=== PATIENT | female | born 1975 | race Caucasian/White ===

== ENCOUNTER 2017-09-28 08:41 | Emergency (ER) | payer BC ==
--- NOTE | 2017-09-28 09:12 | EDM.PDOC ---
ED HPI GENERAL MEDICAL PROBLEM - General Chief Complaint: Respiratory Problem Stated Complaint: CHEST DISCOMFORT Time Seen by Provider: 09/28/17 09:07 Source of Information: Reports: Patient History Limitations: Reports: No Limitations - History of Present Illness INITIAL COMMENTS - FREE TEXT/NARRATIVE: 42-year-old female presents to the ED generally not feeling well for the last 3 days. Her chief complaint is chest heaviness mostly central precordial chest. Associate with a productive cough of brownish mucus. She still smokes a pack per day. She denies any hemoptysis. Feels hot and cold but no defined fever. Nasally congested with right ear pain particularly with swallowing. Diffuse sore throat. Poor appetite 3 days. Stools tend to be a little bit on the low side. No nausea or vomiting. Feels generally achy and weak. She admits she's not been eating or drinking very well the last 2-3 days. Onset: Gradual Onset Date: 09/25/17 Duration: Day(s): Location: Reports: Face (Cold symptoms with nasal congestion and right ear pain. Sore throat.), Chest (Central chest pressure discomfort with a productive cough.), Generalized (Generalized myalgia and weakness.) Quality: Reports: Ache Severity: Moderate Improves with: Reports: Rest Worsens with: Reports: Movement Context: Denies: Activity, Exercise, Lifting, Sick Contact, Trauma, Other Associated Symptoms: Reports: Chest Pain, Cough, cough w sputum, Fever/Chills, Loss of Appetite, Malaise, Shortness of Breath, Other. 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 (Took Motrin twice yesterday but did not feel much relief from this.) Generalized Pain Score (Numeric/FACES): 8 - Related Data Allergies Allergy/AdvReac Type Severity Reaction Status Date / Time No Known Allergies Allergy Verified 09/28/17 08:55 Home Meds: Home Meds Calcium Polycarbophil [Fiber Tabs] 1 tab PO BID 09/28/17 [History] Lactobacillus Acidophilus [Acidophilus] 1 tab PO DAILY 09/28/17 [History] Levofloxacin [Levaquin] 500 mg PO DAILY #9 tab 09/28/17 [Rx] Past Medical History Neurological History: Reports: CVA - Past Surgical History GI Surgical History: Reports: Other (See Below) (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 Denies: Hemoptysis (Brownish sputum) Cardiovascular: Reports: Chest Pain (Central chest heaviness 3 days.), Dyspnea on Exertion, Lightheadedness. Denies: Blood Pressure Problem, Claudication, Edema, Orthopnea, Palpitations Endocrine: Reports: Fatigue GI/Abdominal: Reports: Diarrhea, Decreased Appetite : Reports: No Symptoms (Stools on the loose side but still semi-formed.) Musculoskeletal: Reports: Muscle Pain (Generalized myalgia.) Skin: Reports: No Symptoms Neurological: Reports: Dizziness, Difficulty Walking (Feels like her legs are really heavy when she is walking.), Weakness. Denies: Headache, Numbness, Seizure, Syncope, Tingling Psychiatric: Reports: No Symptoms Hematologic/Lymphatic: Reports: No Symptoms Immunologic: Reports: No Symptoms ED EXAM, GENERAL - Physical Exam Exam: See Below Exam Limited By: No Limitations General Appearance: Alert, WD/WN, No Apparent Distress, Other (Does feel mildly warm to palpation. Nurses record Septra 37.2 however. Vital signs are otherwise normal with BP 121/88 with a pulse ox of 98% on room air.) Eye Exam: Bilateral Eye: Normal Inspection Ears: Normal TMs Nose: Clear Rhinorrhea Throat/Mouth: Normal Inspection, Normal Oropharynx, Other (There oropharynx reveals inflammation of the soft palate uvula and particularly the right palatine tonsil without exudate. It is very bright red and inflamed compatible with pharyngitis.) Head: Atraumatic, Normocephalic Neck: Normal Inspection, Supple, Non-Tender, Full Range of Motion, Lymphadenopathy (L), Lymphadenopathy (R) (Mild mild) Respiratory/Chest: No Respiratory Distress, Lungs Clear, Normal Breath Sounds, No Accessory Muscle Use, Chest Non-Tender, Rhonchi (A few rhonchi scattered upper anterior chest that clear with coughing.) Cardiovascular: Normal Peripheral Pulses, Regular Rate, Rhythm, No Edema, No Gallop, No Murmur, No Rub Peripheral Pulses: 3+: Posterior Tibial (L), Posterior Tibial (R), Dorsalis Pedis (L), Dorsalis Pedis (R) GI/Abdominal: Normal Bowel Sounds, Soft, Non-Tender, No Organomegaly, No Abnormal Bruit, No Mass, Pelvis Stable Extremities: Normal Inspection, Normal Range of Motion, Non-Tender, No Pedal Edema Neurological: Alert, Oriented, CN II-XII Intact, Normal Cognition Psychiatric: Normal Affect, Normal Mood Skin Exam: Warm, Dry, Intact, Normal Color, No Rash EKG INTERPRETATION EKG Date: 09/28/17 Time: 08:55 Rhythm: NSR Rate (Beats/Min): 89 [place]: Normal P-Wave: Enlarged (consider Lt atrial hypertrophy.) QRS: Other (Decreased voltage in limb leads. There are Q waves in V1 and V2. Consider old anteroseptal myocardial infarction.) ST-T: Normal QT: Normal EKG Interpretation Comments: Abnormal ECG Course - Vital Signs Last Recorded V/S: Last Vital Signs Temp 37.2 C 09/28/17 08:50 Pulse 76 09/28/17 13:26 Resp 16 09/28/17 08:50 BP 136/74 09/28/17 13:26 Pulse Ox 98 09/28/17 13:26 - Orders/Labs/Meds Orders: Active Orders 24 hr Category Date Time Status EKG Documentation Completion [RC] STAT Care 09/28/17 09:24 Active CULTURE BLOOD [] Stat Lab 09/28/17 11:45 Received CULTURE BLOOD [] Stat Lab 09/28/17 11:55 Received CULTURE STREP A CONFIRMATION [] Stat Lab 09/28/17 09:44 Results INFLUENZA A+B AG SCREEN [] Stat Lab 09/28/17 09:44 Ordered STREP SCRN A RAPID W CULT CONF [] Stat Lab 09/28/17 09:44 Ordered Blood Culture x2 Reflex Set [OM.PC] Stat Oth 09/28/17 11:30 Ordered Labs: Laboratory Tests 09/28/17 09/28/17 09/28/17 Range/Units 09:00 09:00 11:24 WBC 23.62 H (3.98-10.04) K/mm3 RBC 4.84 (3.98-5.22) M/mm3 Hgb 15.0 (11.2-15.7) gm/L Hct 44.6 (34.1-44.9) % MCV 92.1 (79.4-94.8) fl MCH 31.0 (25.6-32.2) pg MCHC 33.6 (32.2-35.5) g/dl RDW Std Deviation 53.6 H (36.4-46.3) fL Plt Count 271 (182-369) K/mm3 MPV 11.8 (9.4-12.3) fl Neutrophils % (Manual) 52 (40-60) % Band Neutrophils % 1 (0-10) % Lymphocytes % (Manual) 38 (20-40) % Atypical Lymphs % 0 % Monocytes % (Manual) 9 (2-10) % Eosinophils % (Manual) 0 L (0.7-5.8) % Basophils % (Manual) 0 L (0.1-1.2) Differential Comment See note Platelet Estimate Adequate RBC Morph Comment Normal Sodium 139 (136-145) mEq/L Potassium 3.9 (3.5-5.1) mEq/L Chloride 100 (98-107) mEq/L Carbon Dioxide 25 (21-32) mEq/L Anion Gap 17.9 H (5-15) BUN 10 (7-18) mg/dL Creatinine 0.6 (0.55-1.02) mg/dL Est Cr Clr Drug Dosing 115.51 mL/min Estimated GFR (MDRD) > 60 (>60) mL/min BUN/Creatinine Ratio 16.7 (14-18) Glucose 90 (74-106) mg/dL Lactic Acid (0.4-2.0) mmol/L Calcium 9.4 (8.5-10.1) mg/dL Magnesium 1.8 (1.8-2.4) mg/dl Total Bilirubin 0.7 (0.2-1.0) mg/dL AST 21 (15-37) U/L ALT 27 (14-59) U/L Alkaline Phosphatase 111 (46-116) U/L CK-MB (CK-2) < 0.5 (0-3.6) ng/ml Troponin I < 0.017 (0.00-0.056) ng/mL C-Reactive Protein 8.8 H* (<1.0) mg/dL Total Protein 8.0 (6.4-8.2) g/dl Albumin 4.1 (3.4-5.0) g/dl Globulin 3.9 gm/dL Albumin/Globulin Ratio 1.1 (1-2) Urine Color Yellow (Yellow) Urine Appearance Clear (Clear) Urine pH 6.5 (5.0-8.0) Ur Specific [place] 1.025 (1.005-1.030) Urine Protein Trace H (Negative) Urine Glucose (UA) Negative (Negative) Urine Ketones Trace H (Negative) Urine Occult Blood Negative (Negative) Urine Nitrite Negative (Negative) Urine Bilirubin Negative (Negative) Urine Urobilinogen 1.0 (0.2-1.0) Ur Leukocyte Esterase Negative (Negative) 09/28/17 Range/Units 11:45 WBC (3.98-10.04) K/mm3 RBC (3.98-5.22) M/mm3 Hgb (11.2-15.7) gm/L Hct (34.1-44.9) % MCV (79.4-94.8) fl MCH (25.6-32.2) pg MCHC (32.2-35.5) g/dl RDW Std Deviation (36.4-46.3) fL Plt Count (182-369) K/mm3 MPV (9.4-12.3) fl Neutrophils % (Manual) (40-60) % Band Neutrophils % (0-10) % Lymphocytes % (Manual) (20-40) % Atypical Lymphs % % Monocytes % (Manual) (2-10) % Eosinophils % (Manual) (0.7-5.8) % Basophils % (Manual) (0.1-1.2) Differential Comment Platelet Estimate RBC Morph Comment Sodium (136-145) mEq/L Potassium (3.5-5.1) mEq/L Chloride (98-107) mEq/L Carbon Dioxide (21-32) mEq/L Anion Gap (5-15) BUN (7-18) mg/dL Creatinine (0.55-1.02) mg/dL Est Cr Clr Drug Dosing mL/min Estimated GFR (MDRD) (>60) mL/min BUN/Creatinine Ratio (14-18) Glucose (74-106) mg/dL Lactic Acid 1.2 (0.4-2.0) mmol/L Calcium (8.5-10.1) mg/dL Magnesium (1.8-2.4) mg/dl Total Bilirubin (0.2-1.0) mg/dL AST (15-37) U/L ALT (14-59) U/L Alkaline Phosphatase (46-116) U/L CK-MB (CK-2) (0-3.6) ng/ml Troponin I (0.00-0.056) ng/mL C-Reactive Protein (<1.0) mg/dL Total Protein (6.4-8.2) g/dl Albumin (3.4-5.0) g/dl Globulin gm/dL Albumin/Globulin Ratio (1-2) Urine Color (Yellow) Urine Appearance (Clear) Urine pH (5.0-8.0) Ur Specific [place] (1.005-1.030) Urine Protein (Negative) Urine Glucose (UA) (Negative) Urine Ketones (Negative) Urine Occult Blood (Negative) Urine Nitrite (Negative) Urine Bilirubin (Negative) Urine Urobilinogen (0.2-1.0) Ur Leukocyte Esterase (Negative) Meds: Medications Discontinued Medications Generic Name Dose Route Start Last Admin Trade Name Amelia PRN Reason Stop Dose Admin Acetaminophen 975 mg 09/28/17 09:23 09/28/17 09:36 Tylenol PO 09/28/17 09:24 975 mg NOW ONE Administration Dextrose/Sodium Chloride 1,000 mls @ 500 mls/hr 09/28/17 09:30 09/28/17 09:40 Dextrose 5%-Normal Saline IV 500 mls/hr ASDIRECTED NAI Administration Ceftriaxone Sodium 2 gm/ 100 mls @ 100 mls/hr 09/28/17 11:39 09/28/17 11:47 Sodium Chloride IV 09/28/17 12:38 100 mls/hr ONETIME ONE Administration Ketorolac Tromethamine 30 mg 09/28/17 09:30 09/28/17 09:37 Toradol IVPUSH 30 mg ONETIME NAI Administration - Radiology Interpretation Free Text/Narrative:: 42-year-old female presents the ED with generally not feeling well for the last 3 days. Complains of sore throat sinus congestion right ear pain heaviness since her central chest with some concerns that may be heart related. Has have a productive cough. Unclear says defined fever although she feels slightly warm to palpation on exam. Lungs are clear to auscultation percussion. Right ear exam was normal nasally congested. Oropharynx does show diffuse erythematous inflammation. Plan IV D5 normal saline at 500 mils per hour. Given Toradol 30 mg IV for pain relief. Tylenol 975 mg by mouth for fever relief. Labs to be collected including influenza screen. One view chest x-ray to be done. ECG is done and is within normal limits showing no signs of ischemia. - Re-Assessments/Exams Free Text/Narrative Re-Assessment/Exam: 09/28/17 11:00: Chest x-ray revealed mild hyperinflated lung martin but no signs of pneumonia. Cardiac silhouette was within normal limits. 09/28/17 11:29 labs are back.White count is markedly elevated at 23,062... Differential is fairly normal however with 52% neutrophils and 1% band cells. Hemoglobin is 15.0 with hematocrit of 44.6. Platelet count is 271,000. Sodium was 139 with potassium of 3.9. Chloride 100 with a bicarbonate of 25. Anion gap is elevated at 17.9. BUN is 10 with a creatinine of 0.6. GFR is greater than 60. Glucose is 90. Calcium is 9.4. Magnesium 1.8. Liver function normal cardiac markers normal with troponin less than 0.017. C-reactive protein is 8.8. The lab strongly suggest an infective process is present. Urinalysis is not yet available. Influenza screen is negative as well as the rapid strep screen. Plan patient has voided it's the analysis is just not back yet. I will give her Rocephin 2 g IV after blood cultures 2 have been collected. The elevated white count may well be due to previous splenectomy. Patient alludes to the fact that she always has an elevated white count. However this would not account for her elevated CRP at 8.8. 09/28/17 13:15: Patient is feeling better. She'll be discharged home on Levaquin 500 mg once daily for the next 9 days. Urinalysis did come back normal. Patient will be followed in the clinic early next week to see how she is doing. Departure - Departure Time of Disposition: 13:11 Disposition: Home, Self-Care 01 Condition: Fair Clinical Impression: Sinusitis, Bronchitis Prescriptions: Levofloxacin [Levaquin] 500 mg PO DAILY #9 tab Instructions: Sinusitis, Adult, Acute Bronchitis, Adult Referrals: PCP,None [Ordering Only Provider] - Forms: ED Department Discharge Additional Instructions: Evaluation the emergency room today in regards to persistent sense of illness and productive cough and fever for the last 2-3 days. Investigations reveal an elevated white count which is partially due to having had splenectomy in the past. However markers for infection i.e. CRP of 8.8 strongly suggest an underlying bacterial infective process. Also throat shows evidence of infection particular in the right palatine tonsil area which with referred pain up into her right ear. Influenza screen in the rapid strep screen came back negative. Chest x-ray proved to be negative for pneumonia. Urinalysis also came back clear. Definitely have a degree of bronchitis with chest congestion and sputum production. I suspect there is sinus infection with postnasal drip contributing to cough as well. Initial dose of anabolic was administered in the ED I Rocephin 2 g intravenously. Suggest continue treatment with antibiotic Levaquin 500 mg once daily for another 9 days with the next dose due tomorrow morning. Suggest follow-up with your primary care practitioner in 4-5 days time after the to see how you're getting along. - My Orders Last 24 Hours: My Active Orders 09/28/17 09:24 EKG Documentation Completion [RC] STAT 09/28/17 09:44 CULTURE STREP A CONFIRMATION [RM] Stat INFLUENZA A+B AG SCREEN [RM] Stat STREP SCRN A RAPID W CULT CONF [RM] Stat 09/28/17 11:30 Blood Culture x2 Reflex Set [OM.PC] Stat 09/28/17 11:45 CULTURE BLOOD [BC] Stat 09/28/17 11:55 CULTURE BLOOD [BC] Stat - Assessment/Plan Last 24 Hours: My Active Orders 09/28/17 09:24 EKG Documentation Completion [RC] STAT 09/28/17 09:44 CULTURE STREP A CONFIRMATION [RM] Stat INFLUENZA A+B AG SCREEN [RM] Stat STREP SCRN A RAPID W CULT CONF [RM] Stat 09/28/17 11:30 Blood Culture x2 Reflex Set [OM.PC] Stat 09/28/17 11:45 CULTURE BLOOD [BC] Stat 09/28/17 11:55 CULTURE BLOOD [BC] Stat
[2017-09-28] MEDS ORDERED: Acetaminophen 325 MG Tab PO ONE (09:23)
[2017-09-28] MEDS ORDERED: Ketorolac 30 MG/ML SDV IVPUSH SCH (09:30)
[2017-09-28] MEDS ORDERED: Dextrose 5%-0.9% NaCl 1,000 ML IV SCH (09:30)
--- NOTE | 2017-09-28 10:00 | CR ---
Chest: Frontal view of the chest was obtained. Comparison: No prior chest x-ray. Heart size and mediastinum are normal. Lungs are clear. Bony structures are grossly intact. Surgical clip appears to be present within the upper left abdomen. Impression: 1. Nothing acute is seen on frontal chest x-ray. Diagnostic code #2
[2017-09-28] MEDS ORDERED: cefTRIAXone 2 GM in Sodium Chloride 0.9% 100 ML IV ONE (11:39)
== END 2017-09-28 13:28 | disposition home or self-care (01) ==
LOC: JD.ED 08:41
DX: J40 Bronchitis, not specified as acute or chronic (principal); J32.9 Chronic sinusitis, unspecified; R07.2 Precordial pain; R19.7 Diarrhea, unspecified; Z79.899 Other long term (current) drug therapy; Z86.73 Personal history of transient ischemic attack (TIA), and cerebral infarction without residual deficits
CPT/HCPCS: 36415; 71045; 80053; 81003; 82553; 83605; 83735; 84484; 85025; 86140; 87040; 87081; 87430; 87804; 93005; 96361; 96365; 96375; 99284; A9270; J0696; J1885; J7030; J7042; 93010

== ENCOUNTER 2018-02-22 17:16 | Emergency (ER) | payer BC ==
[2018-02-22] MEDS ORDERED: Ondansetron 4 MG/2 ML SDV IVPUSH ONE ×2 (17:56→19:55)
[2018-02-22] MEDS ORDERED: Sodium Chloride 0.9% 10 ML Syringe FLUSH PRN (17:56)
[2018-02-22] MEDS ORDERED: HYDROmorphone 0.5 MG/0.5 ML SYRINGE IVPUSH ONE ×2 (17:56→19:32)
--- NOTE | 2018-02-22 18:12 | EDM.PDOC ---
ED HPI GENERAL MEDICAL PROBLEM - General Chief Complaint: Abdominal Pain Stated Complaint: PAIN, VOMITTING Time Seen by Provider: 02/22/18 17:51 Source of Information: Reports: Patient History Limitations: Reports: No Limitations - History of Present Illness INITIAL COMMENTS - FREE TEXT/NARRATIVE: 42-year-old female presents for evaluation and treatment of right upper quadrant abdominal pain and right-sided chest pain. Patient states she had laparoscopic cholecystectomy with Dr. Kenney at [facility] in [place] this afternoon. She reports no complications. patient was discharged home. Since the surgery she has had right upper quadrant pain and right-sided chest pain. Describes it as a sharp pain. The chest pain is pleuritic in nature. She also reports nausea and vomiting. She was prescribed tramadol but does not feel this is helping with her pain. She was also given nausea medications but also feels this is not helping. Onset: Today Location: Reports: Chest (right sided chest pain), Abdomen (RUQ pain) Chest Pain Score (Numeric/FACES): 10 - Related Data Allergies Allergy/AdvReac Type Severity Reaction Status Date / Time acetaminophen [From [place]] AdvReac Nausea and Verified 02/22/18 17:33 Vomiting hydrocodone [From [place]] AdvReac Nausea and Verified 02/22/18 17:33 Vomiting Home Meds: Home Meds Calcium Polycarbophil [Fiber Tabs] 1 tab PO BID 09/28/17 [History] Lactobacillus Acidophilus [Acidophilus] 1 tab PO DAILY 09/28/17 [History] levoFLOXacin [Levaquin] 500 mg PO DAILY #9 tab 09/28/17 [Rx] Rivaroxaban [Xarelto] 15 mg PO BID #41 tablet 02/22/18 [Rx] Past Medical History HEENT History: Reports: Impaired Vision Cardiovascular History: Reports: Blood Clots/VTE/DVT Other Cardiovascular History: blood clot, unsure where, unsure if she took blood thinners, does not take blood thinner at this time. 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 This happened approximately 20 years ago) Social & Family History - Family History Family Medical History: Noncontributory - Caffeine Use Caffeine Use: Reports: Coffee - Living Situation & Occupation Living situation: Reports: Occupation: Unemployed ED ROS GENERAL - Review of Systems Review Of Systems: See Below Respiratory: Reports: Shortness of Breath, Pleuritic Chest Pain Cardiovascular: Reports: Chest Pain (right) GI/Abdominal: Reports: Abdominal Pain (RUQ), Nausea, Vomiting ED EXAM, GI/ABD - Physical Exam Exam: See Below Exam Limited By: No Limitations General Appearance: Alert, WD/WN, No Apparent Distress Throat/Mouth: Normal Inspection, Normal Voice, No Airway Compromise Respiratory/Chest: No Respiratory Distress, Lungs Clear, Normal Breath Sounds Cardiovascular: Normal Peripheral Pulses, Regular Rate, Rhythm, No Murmur GI/Abdominal Exam: Normal Bowel Sounds, Soft, Tender (Right upper quadrant), Other (Several wounds the abdomen from laparoscopic cholecystectomy earlier today.) Neurological: Alert, Oriented, Normal Cognition Psychiatric: Normal Affect, Normal Mood Skin Exam: Warm, Dry, Normal Color EKG INTERPRETATION EKG Date: 02/22/18 Time: 17:42 Rhythm: Other (sinus arrhythmia) Rate (Beats/Min): 58 [place]: Normal P-Wave: Present QRS: Normal ST-T: Normal QT: Normal EKG Interpretation Comments: Sinus arrhythmia at [address] segment changes. Reviewed by myself and Dr. Perez. Course - Vital Signs Last Recorded V/S: Last Vital Signs Temp 97.0 F 02/22/18 17:34 Pulse 63 02/22/18 17:34 Resp 18 02/22/18 17:34 BP 121/71 02/22/18 17:34 Pulse Ox 96 02/22/18 17:34 - Orders/Labs/Meds Orders: Active Orders 24 hr Category Date Time Status Peripheral IV Care [RC] . DIRECTED Care 02/22/18 17:56 Active Abdomen 1V Flat [CR] Stat Exams 02/22/18 18:01 Taken Chest 1V Frontal [CR] Stat Exams 02/22/18 18:01 Taken Chest PE [Ang Chest] [CT] Stat Exams 02/22/18 19:07 Taken Sodium Chloride 0.9% [Normal Saline] 100 ml Med 02/22/18 19:30 Active IV ASDIRECTED Sodium Chloride 0.9% [Saline Flush] Med 02/22/18 17:56 Active 10 ml FLUSH ASDIRECTED PRN Peripheral IV Insertion Adult [OM.PC] Routine Oth 02/22/18 17:56 Ordered Medication Orders Sodium Chloride (Normal Saline) 100 mls @ 60 mls/hr IV ASDIRECTED NAI Last Admin: 02/22/18 19:59 Dose: 60 mls/hr Sodium Chloride (Saline Flush) 10 ml FLUSH ASDIRECTED PRN PRN Reason: Keep Vein Open Labs: Laboratory Tests 02/22/18 02/22/18 02/22/18 Range/Units 18:32 18:32 18:32 WBC 14.59 H (3.98-10.04) K/mm3 RBC 4.45 (3.98-5.22) M/mm3 Hgb 13.9 (11.2-15.7) gm/L Hct 41.6 (34.1-44.9) % MCV 93.5 (79.4-94.8) fl MCH 31.2 (25.6-32.2) pg MCHC 33.4 (32.2-35.5) g/dl RDW Std Deviation 52.4 H (36.4-46.3) fL Plt Count 271 (182-369) K/mm3 MPV 11.5 (9.4-12.3) fl Neut % (Auto) 85.9 H (34.0-71.1) % Lymph % (Auto) 11.3 L (19.3-51.7) % [place]ane % (Auto) 2.4 L (4.7-12.5) % Eos % (Auto) 0 L (0.7-5.8) Baso % (Auto) 0.2 (0.1-1.2) % Neut # (Auto) 12.53 H (1.56-6.13) K/mm3 Lymph # (Auto) 1.65 (1.18-3.74) K/mm3 Dane # (Auto) 0.35 (0.24-0.36) K/mm3 Eos # (Auto) 0.00 L (0.04-0.36) K/mm3 Baso # (Auto) 0.03 (0.01-0.08) K/mm3 Manual Slide Review Normal smear PT (9.5-12.1) SECONDS INR APTT (24-31) SECONDS D-Dimer, Quantitative 0.75 H (0.19-0.50) mg/L Sodium 140 (136-145) mEq/L Potassium 4.1 (3.5-5.1) mEq/L Chloride 102 (98-107) mEq/L Carbon Dioxide 25 (21-32) mEq/L Anion Gap 17.1 H (5-15) BUN 13 (7-18) mg/dL Creatinine 0.6 (0.55-1.02) mg/dL Est Cr Clr Drug Dosing 115.51 mL/min Estimated GFR (MDRD) > 60 (>60) mL/min BUN/Creatinine Ratio 21.7 H (14-18) Glucose 135 H (74-106) mg/dL Calcium 9.2 (8.5-10.1) mg/dL Total Bilirubin 0.7 (0.2-1.0) mg/dL AST 21 (15-37) U/L ALT 27 (14-59) U/L Alkaline Phosphatase 97 (46-116) U/L NT-Pro-B Natriuret Pep (0-125) pg/mL Total Protein 7.3 (6.4-8.2) g/dl Albumin 3.7 (3.4-5.0) g/dl Globulin 3.6 gm/dL Albumin/Globulin Ratio 1.0 (1-2) 02/22/18 02/22/18 Range/Units 18:32 18:32 WBC (3.98-10.04) K/mm3 RBC (3.98-5.22) M/mm3 Hgb (11.2-15.7) gm/L Hct (34.1-44.9) % MCV (79.4-94.8) fl MCH (25.6-32.2) pg MCHC (32.2-35.5) g/dl RDW Std Deviation (36.4-46.3) fL Plt Count (182-369) K/mm3 MPV (9.4-12.3) fl Neut % (Auto) (34.0-71.1) % Lymph % (Auto) (19.3-51.7) % Dane % (Auto) (4.7-12.5) % Eos % (Auto) (0.7-5.8) Baso % (Auto) (0.1-1.2) % Neut # (Auto) (1.56-6.13) K/mm3 Lymph # (Auto) (1.18-3.74) K/mm3 Dane # (Auto) (0.24-0.36) K/mm3 Eos # (Auto) (0.04-0.36) K/mm3 Baso # (Auto) (0.01-0.08) K/mm3 Manual Slide Review PT 9.8 (9.5-12.1) SECONDS INR < 0.93 APTT 26 (24-31) SECONDS D-Dimer, Quantitative (0.19-0.50) mg/L Sodium (136-145) mEq/L Potassium (3.5-5.1) mEq/L Chloride (98-107) mEq/L Carbon Dioxide (21-32) mEq/L Anion Gap (5-15) BUN (7-18) mg/dL Creatinine (0.55-1.02) mg/dL Est Cr Clr Drug Dosing mL/min Estimated GFR (MDRD) (>60) mL/min BUN/Creatinine Ratio (14-18) Glucose (74-106) mg/dL Calcium (8.5-10.1) mg/dL Total Bilirubin (0.2-1.0) mg/dL AST (15-37) U/L ALT (14-59) U/L Alkaline Phosphatase (46-116) U/L NT-Pro-B Natriuret Pep 110 (0-125) pg/mL Total Protein (6.4-8.2) g/dl Albumin (3.4-5.0) g/dl Globulin gm/dL Albumin/Globulin Ratio (1-2) Meds: Medications Generic Name Dose Route Start Last Admin Trade Name Freq PRN Reason Stop Dose Admin Sodium Chloride 100 mls @ 60 mls/hr 02/22/18 19:30 02/22/18 19:59 Normal Saline IV 60 mls/hr ASDIRECTED NAI Administration Sodium Chloride 10 ml 02/22/18 17:56 Saline Flush FLUSH ASDIRECTED PRN Keep Vein Open Discontinued Medications Generic Name Dose Route Start Last Admin Trade Name Freq PRN Reason Stop Dose Admin Hydromorphone HCl 0.5 mg 02/22/18 17:56 02/22/18 18:10 Dilaudid IVPUSH 02/22/18 17:57 0.5 mg ONETIME ONE Administration Hydromorphone HCl 0.5 mg 02/22/18 19:32 02/22/18 19:42 Dilaudid IVPUSH 02/22/18 19:33 0.5 mg ONETIME ONE Administration Iopamidol 100 ml 02/22/18 19:24 02/22/18 19:58 [place]-370 (76%) IVPUSH 02/22/18 19:25 100 ml ONETIME ONE Administration Ondansetron HCl 4 mg 02/22/18 17:56 02/22/18 18:10 Zofran IVPUSH 02/22/18 17:57 4 mg ONETIME ONE Administration Ondansetron HCl 4 mg 02/22/18 19:55 02/22/18 20:01 Zofran IVPUSH 02/22/18 19:56 4 mg ONETIME ONE Administration Rivaroxaban 15 mg 02/22/18 22:05 02/22/18 22:29 Xarelto PO 02/22/18 22:06 15 mg ONETIME ONE Administration Sodium Chloride 10 ml 02/22/18 19:24 02/22/18 19:58 Saline Flush FLUSH 02/22/18 19:25 10 ml ONETIME ONE Administration - Radiology Interpretation Free Text/Narrative:: chest x-ray shows air below the right diaphragm presumably from earlier surgery today and insufflation. X-ray of the abdomen shows normal gas pattern. Clips from laparoscopic cholecystectomy. CT of the chest with IV contrast impression per vrad: bilateral pulmonary emboli. Atelectasis noted within both lung bases. Filling defects are present within the pulmonary artery to the right middle lobe, right lower lobe, right upper lobe and left lobe. - Re-Assessments/Exams Free Text/Narrative Re-Assessment/Exam: 02/22/18 19:35 Reviewed the labs with the patient. Her d-dimer is slightly elevated. Given her right-sided chest pain I cannot rule out a PE and will have to pursue a CT pulmonary angiogram. She reports good pain relief with the Dilaudid but states it is now returning. Reviewed the remainder of her imaging, EKG and labs with her. 02/22/18 22:[address] with the patient. I'm recommending admission either here at our hospital or transfer back to [place] where she had surgery today. Patient is refusing admission. She would like to go home. I will have her sign out AMA. Recommend she start some anticoagulation. she agrees to start some Xarelto. Dose given here in the ED and I will provide her with a coupon for 30 day supply. She is to follow up with family medicine tomorrow for recheck of her symptoms. She does have an appointment with hematology within the near future for further evaluation of chronic leukocytosis. Warned of risk of increased bleeding. Departure - Departure Time of Disposition: 22:07 Disposition: Against Medical Advice 07 Condition: Serious Clinical Impression: Pulmonary emboli - Discharge Information *PRESCRIPTION DRUG MONITORING PROGRAM REVIEWED*: Yes *COPY OF PRESCRIPTION DRUG MONITORING REPORT IN PATIENT NICKY: No Prescriptions: Rivaroxaban [Xarelto] 15 mg PO BID #41 tablet Instructions: Pulmonary Embolism Referrals: Ryanne Holguin PA-C [Primary Care Provider] - PCP,Cathy [Ordering Only Provider] - Frank Kenney MD [Ordering Only Provider] - Forms: ED Department Discharge Additional Instructions: You were given medication in the ER that can affect your ability to drive and operate machinery. Do not drive or operate machinery within 10 hours of taking prescription narcotic pain medication. you were started on the blood thinning medication xarelto tonight. This is a blood thinning medication. A Coupon has been provided for you to have 30 days free. supervisor plastic sheets your prescription up at the pharmacy tomorrow morning take this twice a day for 21 days. Further direction on dosing to come from your c programmer or your primary care provider. This medication can cause you to bleed. This is a risk of the medication. Follow-up with your primary care provider in the clinic tomorrow. Recommend Delilah Avendano or Barbie Perez. Call [phone] to schedule with one of these providers. Please let them know you are a follow-up from the ER need to be seen Monday. Rx for Percocet 5-325 #20 given from [facility]. Percocet is habit-forming, take as little as needed to control your pain. Do not drive or operate machinery within 10 hours of taking perception narcotic pain medications. Please return to the ER if your symptoms change or worsen. - My Orders Last 24 Hours: My Active Orders 02/22/18 17:56 Peripheral IV Care [RC] . DIRECTED Sodium Chloride 0.9% [Saline Flush] 10 ml FLUSH ASDIRECTED PRN Peripheral IV Insertion Adult [OM.PC] Routine 02/22/18 18:01 Abdomen 1V Flat [CR] Stat Chest 1V Frontal [CR] Stat 02/22/18 19:07 Chest PE [Ang Chest] [CT] Stat 02/22/18 19:30 Sodium Chloride 0.9% [Normal Saline] 100 ml IV ASDIRECTED - Assessment/Plan Last 24 Hours: My Active Orders 02/22/18 17:56 Peripheral IV Care [RC] . DIRECTED Sodium Chloride 0.9% [Saline Flush] 10 ml FLUSH ASDIRECTED PRN Peripheral IV Insertion Adult [OM.PC] Routine 02/22/18 18:01 Abdomen 1V Flat [CR] Stat Chest 1V Frontal [CR] Stat 02/22/18 19:07 Chest PE [Ang Chest] [CT] Stat 02/22/18 19:30 Sodium Chloride 0.9% [Normal Saline] 100 ml IV ASDIRECTED
[2018-02-22] MEDS ORDERED: Sodium Chloride 0.9% 10 ML Syringe FLUSH ONE (19:24)
[2018-02-22] MEDS ORDERED: Iopamidol 755 Mg/ML 100 ML Bottle IVPUSH ONE (19:24)
[2018-02-22] MEDS ORDERED: Sodium Chloride 0.9% 100 ML IV SCH (19:30)
[2018-02-22] MEDS ORDERED: HYDROmorphone 0.5 MG/0.5 ML SYRINGE ONE (19:41)
[2018-02-22] MEDS ORDERED: Ondansetron 4 MG/2 ML SDV ONE (20:00)
[2018-02-22] MEDS ORDERED: Rivaroxaban 10 MG Tab PO ONE (22:05)
[2018-02-22] MEDS ORDERED: Rivaroxaban 10 MG Tab ONE (22:27)
--- NOTE | 2018-02-23 11:46 | CT ---
CT chest Technique: Multiple axial sections through the chest were obtained. Intravenous contrast was utilized. Study has been performed as a pulmonary angiogram protocol. Findings: Small amount of free air is seen within the abdomen. Air is noted within the anterior abdominal wall. Pulmonary arteries are moderately well-opacified. No filling defects are seen to indicate pulmonary embolism. No axillary adenopathy is seen. Lungs show no acute parenchymal densities. No pleural effusions are seen. Mediastinum and hilar regions show no adenopathy or mass. Minimal coronary artery calcification is seen. No pericardial fluid is seen. Bone window settings were reviewed which appear within normal limits for the patient's age. Impression: 1. Small amount of free air within the upper abdomen. Air also noted within the anterior abdominal wall. 2. No findings of pulmonary embolism are seen. 3. Minimal coronary artery calcification is noted. 4. No additional abnormality is appreciated on CT study of the chest. Diagnostic code #2
--- NOTE | 2018-02-26 07:30 | CR ---
Abdomen: Supine view of the abdomen was obtained. Comparison: No prior abdominal x-ray. Surgical clips are seen from prior cholecystectomy. Other surgical clips are seen within the left upper abdomen. Several radiopacities are noted within the left upper abdomen which are likely incidental. Calcifications are seen within the pelvis most likely due to phleboliths. Bowel gas pattern appears normal. Bony structures are within normal limits. Impression: 1. Incidental findings. Nothing acute is appreciated. Diagnostic code #2
--- NOTE | 2018-02-26 08:37 | CR ---
Chest: Frontal view of the chest is obtained. Comparison: Prior chest x-ray of 02/16/18. Small amount of free air is seen beneath the hemidiaphragm on the right side. Heart size and mediastinum are normal. Lungs are clear without acute parenchymal change. Bony structures are grossly intact. Impression: 1. Small amount of free air beneath the right hemidiaphragm. 2. Nothing acute is otherwise seen on frontal chest x-ray. Diagnostic code #2
== END 2018-02-22 22:25 | disposition left against medical advice (07) ==
LOC: JD.ED 17:16
DX: I26.99 Other pulmonary embolism without acute cor pulmonale (principal); Z88.5 Allergy status to narcotic agent; Z79.899 Other long term (current) drug therapy
CPT/HCPCS: 36415; 71045; 71275; 74018; 80053; 83880; 85025; 85379; 85610; 85730; 96372; 96374; 96375; 99285; A9270; J1170; J2405; J7030; J7050; Q9967; 93010; 99284

== ENCOUNTER 2021-10-11 06:32 | Day surgery (SDC) | payer BC ==
[2021-10-11] MEDS ORDERED: Sodium Chloride 0.9% 10 ML Syringe FLUSH SCH (07:00)
[2021-10-11] MEDS ORDERED: Lactated Ringers 1,000 ML IV SCH (07:00)
[2021-10-11] MEDS ORDERED: Lidocaine 1%/Sod Bicarbonate in NS 8.4% 1 ML Syringe IDERM SCH (07:00)
[2021-10-11] MEDS ORDERED: Albuterol 0.083% 2.5 MG/3 ML Neb Soln NEB SCH (07:25)
[2021-10-11] MEDS ORDERED: Propofol 200 MG/20 ML SDV ONE ×2 (07:32→08:26)
[2021-10-11] MEDS ORDERED: fentaNYL 100 MCG/2 ML SDV ONE (07:33)
[2021-10-11] MEDS ORDERED: Midazolam 1 MG/ML 2 ML SDV ONE (07:33)
== END 2021-10-11 09:24 | disposition home or self-care (01) ==
LOC: JD.SDS 06:32
PROVIDERS: ATTEND Surgery
DX: D12.3 Benign neoplasm of transverse colon (principal); D12.8 Benign neoplasm of rectum; K57.30 Diverticulosis of large intestine without perforation or abscess without bleeding; K29.60 Other gastritis without bleeding; K64.1 Second degree hemorrhoids; F17.210 Nicotine dependence, cigarettes, uncomplicated; E78.5 Hyperlipidemia, unspecified; F41.9 Anxiety disorder, unspecified; E55.9 Vitamin D deficiency, unspecified; Z90.49 Acquired absence of other specified parts of digestive tract; Z86.73 Personal history of transient ischemic attack (TIA), and cerebral infarction without residual deficits; Z98.890 Other specified postprocedural states; Z88.8 Allergy status to other drugs, medicaments and biological substances; Z88.5 Allergy status to narcotic agent
CPT/HCPCS: 43239; 45380; 45385; J2250; J2704; J3010; J7120; 00813